=== PATIENT | female | born 1955 | race Caucasian/White ===

== ENCOUNTER 2017-09-12 06:11 | Day surgery (SDC) | payer BC ==
[~2017-09-12] VITALS: Ht 175.3 cm; Wt 109.3 kg
[~2017-09-12 06:11] MED LIST: HYDR25TA6 PO; LISI20TA11 PO; TRAM50TA2 PO
[2017-09-12 07:00] VITALS: Ht 175.3 cm; Wt 109.3 kg
[2017-09-12 07:28] VITALS: BP 137/78; RESP 19
[2017-09-12] MEDS ORDERED: LIDOCAINE 100 MG SYRINGE ONE (07:40)
[2017-09-12] MEDS ORDERED: FENTAnyl 50 MCG/ML VIAL ONE (07:40)
[2017-09-12] MEDS ORDERED: PROPOFOL 40 ML ONE (07:40)
--- NOTE | 2017-09-12 08:22 | OPPN ---
Date/Time of Note Date/Time of Note DATE: 09/12/17 TIME: 08:21 Operative Report Preoperative Diagnosis Screening Postoperative Diagnosis 2 transverse colon polyps removed Extensive diverticulosis of the colon Internal hemorrhoids Operation/Procedure Performed Colonoscopy and biopsy Surgeon see signature line assistant office manager None Anesthesia: MAC Estimated blood loss: none Transfusion Required none Specimen Colon polyps Grafts/Implants none Complications none NIXON MENA MD Sep 12, 2017 08:22
[2017-09-12 08:46] VITALS: BP 111/72; PULSE 68; RESP 24
--- NOTE | 2017-09-12 12:53 | GILP ---
DATE OF PROCEDURE: 09/12/2017 NAME OF PROCEDURE: Colonoscopy and biopsy. SURGEON: Nixon Lyons MD. PREOPERATIVE DIAGNOSIS: Screening colonoscopy. POSTOPERATIVE DIAGNOSES 1. Colonoscopy all the way to the cecum. 2. Two transverse colon polyps were removed using the biopsy forceps. 3. Extensive diverticulosis of the colon. 4. Internal hemorrhoids. INDICATION FOR THE PROCEDURE: Ms. Lisa Henriquez is a 61-year-old female patient who was sched uled for screening colonoscopy. The procedure and possible complications were well explained to the patient. She understood and con sented to the procedure. DESCRIPTION OF PROCEDURE: Under the influence of anesthesia, the colonoscope was carefully introduc ed in the rectum and under direct vision, it was advanced all the way to the cecum. FINDINGS: The patient had 2 transverse colon polyps and they were removed using the biopsy forceps. She had extensive diverticulosis of the colon and internal hemorrhoids. She tolerated the procedure very well. There was no complication from the procedure. At the end of the procedures, she was awake with stable vital signs and she was discharged home to the care of he r family. IMPRESSION: Please see postoperative diagnoses. PLAN: 1. Await histopathology report. 2. High fiber diet. 3. Next screening colonoscopy in 5 years. Dictated By: NIXON HOGUE/APARNA Conf#: [id number] DID#: [id number]
== END 2017-09-12 19:45 | disposition home or self-care (01) ==
LOC: GIL 06:11
PROVIDERS: ATTEND Internal Medicine Gastroenterology
DX: Z12.11 Encounter for screening for malignant neoplasm of colon (principal); K57.90 Diverticulosis of intestine, part unspecified, without perforation or abscess without bleeding; K64.8 Other hemorrhoids; I12.9 Hypertensive chronic kidney disease with stage 1 through stage 4 chronic kidney disease, or unspecified chronic kidney disease; N18.3 Chronic kidney disease, stage 3 (moderate)
CPT/HCPCS: 45380; 88305; J2001; J3010; Z7610